=== PATIENT | male | born 1980 | race Caucasian/White ===

== ENCOUNTER 2023-03-28 18:13 | Inpatient (IN) | payer MEDICAID ==
[~2023-03-28] VITALS: Ht 190.5 cm; Wt 128.5 kg
[2023-03-28 19:15] LABS: BASOPHILS % 0.5 % (0.0-2.0); EOSINOPHILS % 0.4 % (0.0-5.0); HEMATOCRIT. 50.4 % (42.0-52.0); HEMOGLOBIN. 17.6 g/dL (14.0-18.0); LYMPHOCYTES % 14.2 % (20.0-50.0); MEAN CORPUSCULAR HEMOGLOBIN 31.8 pg (28.0-32.0); MEAN CORPUSCULAR HGB CONC 34.8 g/dL (31.0-37.0); MEAN CORPUSCULAR VOLUME 91.1 fL (80.0-94.0); MEAN PLATELET VOLUME 7.8 fl (7.4-10.4); MONOCYTES % 6.3 % (2.0-8.0); NEUTROPHILS % 78.6 % (40.0-76.0); PLATELET 252 x1000/uL (130-400); RED BLOOD CELL COUNT 5.53 mill/uL (4.7-6.1); RED CELL DISTRIBUTION WIDTH 13.3 % (11.6-14.6); WHITE BLOOD COUNT 11.5 x1000/uL (4.5-11.0)
[2023-03-28 19:18] LABS: CHLORIDE 105 mEq/L (98-107); INDEX HEMOLYSI 1 (1-3); INDEX ICTERIC 1 (1-4); INDEX LIPEMIC 1 (1-3); POTASSIUM 3.7 mEq/L (3.5-5.1); SODIUM 136 mEq/L (136-145)
[2023-03-28 19:29] LABS: ALANINE AMINOTRANSFERASE 71 IU/L (13-61); ALBUMIN 4.5 g/dL (3.4-5.0); ASPARTATE AMINOTRANSFERASE 52 IU/L (15-37); BILIRUBIN TOTAL 1.3 mg/dL (0.1-1.0); CALCIUM 9.6 mg/dL (8.5-10.1); CARBON DIOXIDE 19 mEq/L (21-32); CREATININE 0.7 mg/dL (0.6-1.3); ETHANOL BLOOD < 10 mg/dL (-10); GLUCOSE 108 mg/dL (70-105); PROTEIN TOTAL 8.4 g/dL (6.0-8.3); UREA NITROGEN BLOOD 19 mg/dL (7-21)
[2023-03-28] MEDS ORDERED: MORPHINE SULFATE 4 MG/ML CPJ (NOT FOR IM USE) IV STA (20:33)
[2023-03-28] MEDS ORDERED: ONDANSETRON HCL 4MG/2ML INJ IV STA (20:33)
[2023-03-28] MEDS ORDERED: MORPHINE SULFATE 4 MG/ML CPJ (NOT FOR IM USE) IV NR (20:45)
[2023-03-28] MEDS ORDERED: ONDANSETRON HCL 4MG/2ML INJ IV NR (20:45)
[2023-03-28] MEDS ORDERED: SODIUM CHLORIDE 0.9% 1,000 ML IV ONE (20:45)
[2023-03-28] MEDS ORDERED: FOLIC ACID 1 MG, THIAMINE HCL 100 MG, MVI, ADULT NO.1 10 ML in DEXTROSE 5% WATER 1,000 ML IV ONE ×4 (20:45)
[2023-03-28] MEDS ORDERED: LORAZEPAM 2MG/ML CPJ IV ONE (20:45)
[2023-03-28 20:48] LABS: CLARITY URINE CLEAR (CLEAR); COLOR URINE DARK YELLOW (YELLOW); GLUCOSE URINE NEGATIVE (NEGATIVE); KETONES URINE 3+ (NEGATIVE); LEUKOCYTE ESTERASE URINE NEGATIVE (NEGATIVE); NITRITE URINE NEGATIVE (NEGATIVE); OCCULT BLOOD URINE NEGATIVE (NEGATIVE); PROTEIN URINE 2+ (NEGATIVE); SPECIFIC GRAVITY URINE 1.035 (1.005-1.030)
[2023-03-28 20:51] LABS: YEAST URINE NONE SEEN
[2023-03-28 20:58] LABS: *AMPHETAMINES SCREEN URINE NEGATIVE (NEGATIVE); *BARBITURATES SCREEN URINE NEGATIVE (NEGATIVE); *BENZODIAZEPINES SCREEN URINE NEGATIVE (NEGATIVE); *COCAINE SCREEN URINE NEGATIVE (NEGATIVE); CANNABINOID URINE SCREEN NEGATIVE (NEGATIVE); ECSTASY MDMA SCREEN URINE NEGATIVE (NEGATIVE); METHADONE URINE SCREEN NEGATIVE (NEGATIVE); OPIATES URINE SCREEN NEGATIVE (NEGATIVE); PHENCYCLIDINE URINE SCREEN NEGATIVE (NEGATIVE)
[2023-03-28 21:12] LABS: BACTERIA URINE 1+; RBC URINE 0-2 /hpf (0-2); SQUAMOUS EPITHELIAL CELL URINE FEW /lpf (RARE/1+); WBC URINE 0-2 /hpf (0-2)
[2023-03-29] MEDS ORDERED: MAGNESIUM/ALUMINUM HYDROXIDE/SIMETHICONE 30ML UDC PO PRN
[2023-03-29] MEDS ORDERED: ONDANSETRON HCL 4MG/2ML INJ IV PRN
[2023-03-29] MEDS ORDERED: DOCUSATE SODIUM 100MG CAPSULE PO PRN
[2023-03-29] MEDS ORDERED: MVI, ADULT NO.1 10 ML, FOLIC ACID 1 MG, THIAMINE HCL 100 MG in SODIUM CHLORIDE 0.9% 1,0... IV NR ×4
[2023-03-29] MEDS ORDERED: NA PHOS,M-B/NA PHOS,DI-BA ENEMA 118ML PR PRN
[2023-03-29] MEDS ORDERED: CLONIDINE 0.1MG TABLET PO PRN
[2023-03-29] MEDS ORDERED: ACETAMINOPHEN 325MG TABLET PO PRN
[2023-03-29] MEDS ORDERED: HYDRALAZINE 20MG/ML VIAL IV NR
[2023-03-29] MEDS ORDERED: GUAIFENESIN 200MG/10ML SUGAR FREE UDC PO PRN
[2023-03-29] MEDS ORDERED: LORAZEPAM 2MG/ML CPJ IV PRN
[2023-03-29] MEDS ORDERED: MORPHINE SULFATE 2 MG/ML CPJ (NOT FOR IM USE) IV PRN
[2023-03-29] MEDS ORDERED: IPRATROPIUM/ALBUTEROL 0.5-3(2.5)MG/3ML NEB HHN PRN
[2023-03-29] MEDS ORDERED: VANCOMYCIN 1.5GM/250ML IVPB 250 ML IV NR (00:30)
[2023-03-29] MEDS ORDERED: NALOXONE HCL 0.4MG/ML VIAL IV PRN (00:45)
[2023-03-29 02:10] LABS: HEPATITIS B SURFACE ANTIGEN NEGATIVE
[2023-03-29 02:19] LABS: VITAMIN B12 SERUM 764 pg/mL (211-911)
[2023-03-29 02:38] LABS: HEPATITIS C VIR.AB 0.13 INDEXVAL (0.00-0.80)
[2023-03-29 02:39] LABS: HEPATITIS B CORE AB IGM NEGATIVE
[2023-03-29 02:40] LABS: HEPATITIS A AB IGM NEGATIVE (NEGATIVE)
[2023-03-29] MEDS: CHLORDIAZEPOXIDE 25MG CAPSULE PO SCH ×2 (06:00→14:11)
[2023-03-29] MEDS ORDERED: PIPERACILLIN/TAZOBACTAM 3.375 G in DEXTROSE 5% WATER 50 ML IV SCH ×2 (06:00→15:00)
[2023-03-29] MEDS: SODIUM CHLORIDE 0.9% 1,000 ML IV SCH ×2 (06:21→09:56)
[2023-03-29 07:09] LABS: BASOPHILS % 0.5 % (0.0-2.0); DIFFERENTIAL COMMENT 0; EOSINOPHILS % 3.7 % (0.0-5.0); HEMATOCRIT. 45.9 % (42.0-52.0); HEMOGLOBIN. 16.4 g/dL (14.0-18.0); LYMPHOCYTES % 14.3 % (20.0-50.0); MEAN CORPUSCULAR HEMOGLOBIN 32.4 pg (28.0-32.0); MEAN CORPUSCULAR HGB CONC 35.7 g/dL (31.0-37.0); MEAN CORPUSCULAR VOLUME 90.8 fL (80.0-94.0); MEAN PLATELET VOLUME 8.1 fl (7.4-10.4); MONOCYTES % 8.9 % (2.0-8.0); NEUTROPHILS % 72.6 % (40.0-76.0); PLATELET 218 x1000/uL (130-400); RED BLOOD CELL COUNT 5.05 mill/uL (4.7-6.1); RED CELL DISTRIBUTION WIDTH 13.3 % (11.6-14.6); WHITE BLOOD COUNT 6.2 x1000/uL (4.5-11.0)
[2023-03-29 07:24] LABS: CHLORIDE 105 mEq/L (98-107); INDEX HEMOLYSI 1 (1-3); INDEX ICTERIC 1 (1-4); INDEX LIPEMIC 1 (1-3); POTASSIUM 3.4 mEq/L (3.5-5.1); SODIUM 136 mEq/L (136-145)
[2023-03-29 07:48] LABS: ALANINE AMINOTRANSFERASE 59 IU/L (13-61); ASPARTATE AMINOTRANSFERASE 45 IU/L (15-37); BILIRUBIN TOTAL 1.5 mg/dL (0.1-1.0); CALCIUM 8.6 mg/dL (8.5-10.1); CARBON DIOXIDE 25 mEq/L (21-32); CREATINE KINASE 445 IU/L (39-308); CREATININE 0.7 mg/dL (0.6-1.3); GLUCOSE 120 mg/dL (70-105); PROTEIN TOTAL 7.5 g/dL (6.0-8.3); T4 FREE 1.09 ng/dL (0.76-1.46); TROPONIN I HIGH SENSITIVITY 4 ng/L (<78); UREA NITROGEN BLOOD 14 mg/dL (7-21)
[2023-03-29] MEDS ORDERED: VANCOMYCIN 1.25GM PMX (XELLIA) 250 ML IV SCH (09:00)
[2023-03-29] MEDS ORDERED: ENOXAPARIN 30MG/0.3ML SYR SUBCUT SCH (09:00)
[2023-03-29] MEDS ORDERED: THIAMINE HCL 100MG TABLET PO SCH (09:00)
[2023-03-29 09:45] VITALS: BP 134/82; PULSE 69; RESP 18; TEMP 98
[2023-03-29] MEDS: PANTOPRAZOLE SODIUM 40 MG/VIAL IV SCH ×2 (09:55)
[2023-03-29 10:00] VITALS: BP 134/82; PULSE 69; RESP 18; TEMP 98
[2023-03-29 12:00] VITALS: BP 145/110; PULSE 72; RESP 17; TEMP 98
[2023-03-29 12:02] LABS: AMMONIA 31 uMol/L (<32)
[2023-03-29 16:00] VITALS: BP 145/90; PULSE 83; RESP 18; TEMP 98
[2023-03-29 16:36] VITALS: BP 145/90; PULSE 83; TEMP 98; O2SAT 100
[2023-03-29 18:08] LABS: INDEX HEMOLYSI 1 (1-3)
[2023-03-29 18:29] LABS: CREATINE KINASE 384 IU/L (39-308); TROPONIN I HIGH SENSITIVITY 5 ng/L (<78)
== END 2023-03-29 18:25 | disposition home or self-care (01) | DRG 282 ==
LOC: ER 18:13 → MICUSO 23:23 → SUPCPDRO 23:40 → 8WST 03-29 09:43
PROVIDERS: ADMIT Internal Medicine; ATTEND Internal Medicine
DX: K85.90 Acute pancreatitis without necrosis or infection, unspecified (principal); R65.10 Systemic inflammatory response syndrome (SIRS) of non-infectious origin without acute organ dysfunction; K76.0 Fatty (change of) liver, not elsewhere classified; E66.9 Obesity, unspecified; F10.239 Alcohol dependence with withdrawal, unspecified; I10 Essential (primary) hypertension; F17.210 Nicotine dependence, cigarettes, uncomplicated; Z68.35 Body mass index [BMI] 35.0-35.9, adult
CPT/HCPCS: 36415; 71045; 74176; 76705; 80053; 80061; 80305; 80320; 81003; 82140; 82550; 82607; 82746; 83036; 84439; 84443; 84484; 85025; 86705; 86709; 86803; 87340; 93005; 99285; C9113; J0360; J1650; J2060; J2270; J2405; J2543; J3370; J3411; J3490; J7030; J7060; J7070; G0480

== ENCOUNTER 2024-08-14 13:27 | Emergency (ER) | payer MEDICAID ==
[~2024-08-14] VITALS: Ht 190.5 cm; Wt 111.0 kg
[2024-08-14 13:29] VITALS: O2SAT 97
[2024-08-14 13:59] VITALS: BP 145/94; PULSE 140; RESP 18; TEMP 98.8; O2SAT 99
[2024-08-14 14:53] LABS: CHLORIDE 103 mEq/L (98-107); POTASSIUM 3.9 mEq/L (3.5-5.1); SODIUM 139 mEq/L (136-145)
[2024-08-14 14:54] LABS: CARBON DIOXIDE 23 mEq/L (21-32)
[2024-08-14 14:55] LABS: BASOPHILS % 0.5 % (0.0-2.0); CALCIUM 9.5 mg/dL (8.7-10.4); EOSINOPHILS % 3.4 % (0.0-5.0); HEMATOCRIT. 52.5 % (42.0-52.0); HEMOGLOBIN. 17.9 g/dL (14.0-18.0); LYMPHOCYTES % 14.5 % (20.0-50.0); MEAN CORPUSCULAR HEMOGLOBIN 32.2 pg (28.0-32.0); MEAN CORPUSCULAR VOLUME 94.5 fL (80.0-94.0); MEAN PLATELET VOLUME 8.1 fl (7.4-10.4); MONOCYTES % 5.6 % (2.0-8.0); PLATELET 242 x1000/uL (130-400); RED BLOOD CELL COUNT 5.55 mill/uL (4.7-6.1); RED CELL DISTRIBUTION WIDTH 14.2 % (11.6-14.6); WHITE BLOOD COUNT 9.4 x1000/uL (4.5-11.0)
[2024-08-14 15:00] LABS: GLUCOSE 165 mg/dL (70-105); TROPONIN I HIGH SENSITIVITY 4 ng/L (3.0-53); UREA NITROGEN BLOOD 16 mg/dL (9-23)
[2024-08-14 15:01] LABS: ALANINE AMINOTRANSFERASE 59 IU/L (10-49); ALBUMIN 4.7 g/dL (3.2-4.8); ASPARTATE AMINOTRANSFERASE 62 IU/L (<34)
[2024-08-14 15:02] LABS: BILIRUBIN DIRECT 0.2 mg/dL (<=3.0); BILIRUBIN TOTAL 0.9 mg/dL (0.1-1.0); PROTEIN TOTAL 7.7 g/dL (6.0-8.3)
[2024-08-14] MEDS ORDERED: MAGNESIUM/ALUMINUM HYDROXIDE/SIMETHICONE 30ML UDC PO STA (15:39)
[2024-08-14] MEDS ORDERED: ONDANSETRON HCL 4MG/2ML INJ IV STA (15:39)
[2024-08-14] MEDS ORDERED: PANTOPRAZOLE 40MG DR TABLET PO ONE (15:45)
[2024-08-14 16:24] LABS: CHLORIDE 102 mEq/L (98-107); SODIUM 138 mEq/L (136-145)
[2024-08-14 16:25] LABS: CARBON DIOXIDE 22 mEq/L (21-32)
[2024-08-14 16:26] LABS: CALCIUM 9.7 mg/dL (8.7-10.4)
[2024-08-14 16:29] LABS: INR 0.9; PROTHROMBIN TIME 10.3 sec (9.6-11.0)
[2024-08-14 16:30] LABS: CREATININE 0.9 mg/dL (0.6-1.3); GLUCOSE 154 mg/dL (70-105)
[2024-08-14 16:31] LABS: UREA NITROGEN BLOOD 15 mg/dL (9-23)
[2024-08-14 16:32] LABS: BASOPHILS % 0.3 % (0.0-2.0); HEMOGLOBIN. 17.5 g/dL (14.0-18.0); MEAN CORPUSCULAR HEMOGLOBIN 32.4 pg (28.0-32.0); MEAN CORPUSCULAR HGB CONC 34.4 g/dL (31.0-37.0); MEAN PLATELET VOLUME 8.1 fl (7.4-10.4); NEUTROPHILS % 76.7 % (40.0-76.0); PLATELET 234 x1000/uL (130-400); RED BLOOD CELL COUNT 5.42 mill/uL (4.7-6.1); RED CELL DISTRIBUTION WIDTH 14.5 % (11.6-14.6); WHITE BLOOD COUNT 9.8 x1000/uL (4.5-11.0)
[2024-08-14 17:41] LABS: CLARITY URINE CLOUDY (CLEAR); COLOR URINE DARK YELLOW (YELLOW); GLUCOSE URINE NEGATIVE (NEGATIVE); KETONES URINE 2+ (NEGATIVE); LEUKOCYTE ESTERASE URINE NEGATIVE (NEGATIVE); NITRITE URINE NEGATIVE (NEGATIVE); OCCULT BLOOD URINE NEGATIVE (NEGATIVE); PH URINE 5.5 (4.5-8.0); PROTEIN URINE 1+ (NEGATIVE); SPECIFIC GRAVITY URINE 1.022 (1.005-1.030)
[2024-08-14 17:56] LABS: BACTERIA URINE NONE SEEN; RBC URINE NONE SEEN /hpf (0-2); SQUAMOUS EPITHELIAL CELL URINE FEW /lpf (RARE/1+); WBC URINE 0-2 /hpf (0-2)
[2024-08-14] MEDS ORDERED: ONDA4TAB50 MT (18:07)
[2024-08-14] MEDS ORDERED: PANT40SU MT (18:07)
[2024-08-14] MEDS ORDERED: MAG-55 MT (18:07)
[2024-08-14] MEDS: PANTOPRAZOLE 40MG DR TABLET PO NR (18:49)
[2024-08-14] MEDS: MAGNESIUM/ALUMINUM HYDROXIDE/SIMETHICONE 30ML UDC PO NR (18:49)
[2024-08-14] MEDS: SODIUM CHLORIDE 0.9% 1,000 ML IV ONE (18:50)
[2024-08-14] MEDS: ONDANSETRON HCL 4MG/2ML INJ IV NR (18:50)
== END 2024-08-14 23:14 | disposition home or self-care (01) ==
LOC: ER 13:30
DX: F10.129 Alcohol abuse with intoxication, unspecified (principal); K29.70 Gastritis, unspecified, without bleeding; Z79.899 Other long term (current) drug therapy; Y90.9 Presence of alcohol in blood, level not specified
CPT/HCPCS: 80076; 80048; 81003; 83690; 85025; 85610; 84484; 36415; 74176; 93005; 96361; 96374; 99285; J2405; J7030; Z7610; 99284